=== PATIENT | female | born 1980 | race Caucasian/White ===

== ENCOUNTER 2023-03-20 01:26 | Outpatient (CLI) | payer BC, SELFPAY ==
--- NOTE | 2023-03-20 | DI.MAMMO_ITS ---
Exam(s) MAMMO SCREENING EXAM: MAMMO SCREENING CLINICAL HISTORY: SCREENING, Z12.39 TECHNIQUE: Mammograms were interpreted according to the usual protocol including computer analysis w [employer] CAD system, tomosynthesis and C-view imaging. COMPARISON: None. Baseline examination. FINDINGS: The breasts are composed of scattered fibroglandular densities, Breast Density category B. No suspicious masses or suspicious microcalcifications are seen in the left breast. In the right annia ast, there is some asymmetric tissue in the upper and outer aspects of breast. Spot compression view s and ultrasound are requested for further evaluation.. No skin thickening or abnormal axillary lymph nodes are seen. IMPRESSION: BI-RADS Category 0 - Assessment Incomplete: Need additional imaging evaluation Breast Density - Category B, scattered fibroglandular densities. A negative radiographic report should not delay biopsy if a dominant or clinically suspicious mass is present. Up to ten percent of cancers are not identified on mammography. A negative report may reinforce clinical impression. Adenosis and dense breasts may obscure an underlying neoplasm. False positive reports average 6 to 10%. Patient will receive a letter notifying them of these results.
== END 2023-03-20 01:46 ==
PROVIDERS: Visit Provider Physician Assistant
DX: Z12.31 Encounter for screening mammogram for malignant neoplasm of breast (principal)
CPT/HCPCS: 77063; 77067

== ENCOUNTER 2023-03-27 01:18 | Outpatient (CLI) | payer BC, SELFPAY ==
--- NOTE | 2023-03-27 | DI.US_ITS ---
Exam(s) MG MAMMO SCREEN CALL BACK UNI US BREAST RT LIMITED EXAM: MG MAMMO SCREEN CALL BACK UNI and U/S breast RT limited CLINICAL HISTORY: F/U MAMMO,R92.8,ASYMMETRIC RT BREAST TISSUE. TECHNIQUE: Craniocaudal and mediolateral oblique Full Field Digital Mammography views of the right b reast with Computer Aided Diagnosis followed by Tomosynthesis and right breast ultrasound. COMPARISON: Comparison is made with baseline examination. FINDINGS: Mammography/Tomosynthesis: Masses/Architectural Distortion: Additional views show no persistent mass or area of architectural di stortion. Microcalcifictions: No suspicious pleomorphic-type are seen. Skin Thickening/Nipple Retraction: None. Limited right breast US: Echotexture: Normal appearance of the glandular tissue. Shadowing: No suspicious foci. Cyst: None. Solid lesions: None seen. Ductal dilation: None. IMPRESSION: 1. No evidence of malignancy is noted. 2. Unless there is more urgent need, follow-up screening mammography is recommended, as per [employer] guidelines. 3. The findings were discussed with the patient on the date of the examination. BI-RADS Category 1 - Negative Breast Density - Category B - Scattered areas of fibroglandular density Breast density Category C or D implies that the patient has dense breast tissue. Dense breast tissue can make it harder to find cancer on a mammogram. Dense breast tissue is also associated with an incr eased risk of breast cancer. This information about the result of the mammogram report was provided to the patient to raise their awareness. Use this report when you speak with the patient about their risks for breast cancer, which includes their family history. At that time, you may recommend additional screening tests (Ultrasoun d or MRI) as these tests may add significant information. A negative radiographic report should not delay biopsy if a dominant or clinically suspicious mass is present. Up to ten percent of cancers are not identified on mammography. A negative report may reinforce clinical impression. Adenosis and dense breasts may obscure an underlying neoplasm. False positive reports average 6 to 10%. Patient will receive a letter notifying them of these results.
== END 2023-03-27 01:38 ==
PROVIDERS: Visit Provider Physician Assistant
DX: R92.8 Other abnormal and inconclusive findings on diagnostic imaging of breast (principal); Z12.31 Encounter for screening mammogram for malignant neoplasm of breast
CPT/HCPCS: 76642; 77063; 77067

== ENCOUNTER 2024-01-01 10:14 | Outpatient (REF) | payer SELFPAY ==
[2024-01-01 15:44] LABS: Anion Gap 9.6 mmol/L (3-11); BUN 5 mg/dL (7-18); CO2 25.4 mmol/L (21.0-32.0); CREATININE 0.9 mg/dL (0.55-1.02); Calcium 8.5 mg/dL (8.5-10.1); Calculated LDL 127 mg/dL (<100); Chloride 108 mmol/L (98-107); Cholesterol 189 mg/dL (<200); Estimated GFR 82.37 (mL/min/1.73m2); Glucose 97 mg/dL (74-106); HDL Cholesterol 42 mg/dL (40-60); Potassium 4.5 mmol/L (3.5-5.1); Sodium 143 mmol/L (136-145); Triglyceride 102 mg/dL (<150)
== END 2024-01-01 10:15 | disposition home or self-care (01) ==
LOC: NCHCN 10:14
PROVIDERS: Visit Provider Physician Assistant
DX: Z13.220 Encounter for screening for lipoid disorders (principal); Z13.228 Encounter for screening for other metabolic disorders
CPT/HCPCS: 80048; 80061

== ENCOUNTER 2024-03-13 16:24 | Outpatient (REF) | payer BC, SELFPAY ==
--- NOTE | 2024-03-13 14:55 | PAPFT_PTH ---
PATIENT: Lori Mari LOC: [facility]#:[id number] AGE/SX: 43/F ROOM: RE03/13/[address]: Corey Kingsley : 1980 BED: DIS: 03/13/2024 SPEC #: [id number] RECD: 03/14/24 12:55 STATUS: ESTELLE REQ #: [id number] DAYDAY: 03/13/24 14:[address]: Corey Kingsley DEPT: [facility] Cytology RECD BY: Shantel Rae ENTERED: 03/14/24 12:55 SP TYPE: PAPFT EMY DR: Unknown,Unknown Tissues: 1 - CX/ENDOCX FOR PAP SMEARS Procedures: PAP THIN PREP/[facility] Screening HPV DNA PROBE Comments: [id number]
[2024-03-13 18:56] LABS: Abs Immature Grans 0.04 10^3/uL (0.0-0.06); Absolute Basophil Count 0.09 10^3/uL (0.0-0.2); Absolute Eosinophil Count 0.45 10^3/uL (0.0-0.7); Absolute Lymphocyte Count 1.57 10^3/uL (1.2-3.4); Absolute Monocyte Count 0.63 10^3/uL (0.1-0.8); Absolute Neutrophil Count 9.04 10^3/uL (1.2-6.7); Basophils % 0.8 %; Eosinophils % 3.8 %; HCT 42.9 % (36.0-46.0); HGB 14.2 g/dL (11.2-15.7); Immature Grans % 0.3 %; Lymphocytes % 13.3 %; MCH 27.7 pg (27.0-33.0); MCHC 33.1 % (32.0-36.0); MCV 84 fL (80-95); Monocytes % 5.3 %; Neutrophils % 76.5 %; RBC 5.12 10^6/uL (3.93-5.22); RDW 14.6 % (11.7-14.6); RDW-SD 44.5 fL; WBC 11.82 10^3/uL (4.4-10.8)
[2024-03-13 19:19] LABS: FREE T4 0.92 ng/dL (0.76-1.46); TSH 1.52 uIU/Ml (0.36-3.74)
[2024-03-13 19:34] LABS: Platelet Count 257 10^3/uL (130-400); RBC Morphology Normal
[2024-03-13 19:35] LABS: Diff Comment PLT Morph Reviewed
== END 2024-03-13 16:25 | disposition home or self-care (01) ==
LOC: NCHCN 16:24
PROVIDERS: Visit Provider Physician Assistant
DX: Z12.4 Encounter for screening for malignant neoplasm of cervix (principal); R53.83 Other fatigue; N72 Inflammatory disease of cervix uteri
CPT/HCPCS: 88142; 84439; 84443; 85025; 87624

== ENCOUNTER 2024-09-26 19:06 | Outpatient (REF) | payer BC, SELFPAY ==
[2024-09-27 18:18] LABS: FSH 1.6 mIU/mL (See Note); Prolactin 5.7 ng/mL (See Note)
== END 2024-09-26 19:07 | disposition home or self-care (01) ==
LOC: NCHCN 19:06
PROVIDERS: Visit Provider Physician Assistant
DX: N92.6 Irregular menstruation, unspecified (principal)
CPT/HCPCS: 83001; 84146